=== PATIENT | female | born 1950 | race Caucasian/White ===

== ENCOUNTER 2021-07-18 14:48 | Emergency (ER) | payer OTHER, MEDICARE ==
[~2021-07-18] VITALS: Ht 157.5 cm; Wt 73.5 kg
[~2021-07-18 14:48] MED LIST: ACETAMINOPHEN325 M1 PO; DIPROLENE AF 0.15 GM; FLAGYL250 MG PO; IBUPROFEN200 MG PO; LANSOPRAZOLE30 MG PO; LEVO-T75 MCG PO; MIRAPEX0.25 MG PO; NORCO 5-325 TA1 EACH PO; OCUVITE TABLET1 EAC1 PO; PENTASA500 MG PO; PEPCID20 MG PO; PERCOCET 7.5-31 EACH PO; RANITIDINE HCL150 M1 PO; TUMS200 MG PO; VITAMIN D1000 UNIT PO; ZOFRAN ODT8 MG SL
[2021-07-18] MEDS ORDERED: DILAUDID2 MG PO (15:36)
[2021-07-18] MEDS ORDERED: ONDANSETRON ODT8 MG PO (15:36)
== END 2021-07-18 16:02 | disposition home or self-care (01) ==
LOC: ED 14:48
DX: S42.212A Unspecified displaced fracture of surgical neck of left humerus, initial encounter for closed fracture (principal); W18.30XA Fall on same level, unspecified, initial encounter; K21.9 Gastro-esophageal reflux disease without esophagitis; Z87.891 Personal history of nicotine dependence; Z79.899 Other long term (current) drug therapy
CPT/HCPCS: 73060; 96372; 99283-25; J1170

== ENCOUNTER 2025-03-19 07:47 | Day surgery (SDC) | payer MEDICARE, OTHER ==
[~2025-03-19] VITALS: Ht 154.9 cm; Wt 73.0 kg
[~2025-03-19 07:47] MED LIST changes: +CEFAZOLIN SODIUM 2 GM/20 ML SYR IV SCH; +DILAUDID2 MG PO; +HEParin SOD (PORCINE) 5,000 UNIT/ML SDV SUB-Q SCH; +IBLOOD GLUCOSE TEST STRIP 1 EA TEST VI PRN; +IRON18 M1 PO; +LACTATED RINGER'S 1,000 ML IV SCH; +LIDOCAINE HCL 1% 5 ML SDV INJ ONE; +MIRAPEX ER1.5 MG PO; -MIRAPEX0.25 MG PO; +ONDANSETRON ODT8 MG PO; +ZYRTEC10 M3 PO
[2025-03-19 08:02] VITALS: BP 124/70
[2025-03-19] MEDS ORDERED: dexmedeTOMIDine HCl 200 MCG/2 ML VIAL ONE (08:27)
[2025-03-19] MEDS ORDERED: propofoL 200 MG/20 ML VIAL ONE (08:27)
[2025-03-19] MEDS ORDERED: LIDOCAINE HCL 2% 5 ML SDV ONE (08:28)
[2025-03-19] MEDS ORDERED: ROCURONIUM BROMIDE 50 MG/5 ML SYR ONE ×2 (08:28→09:08)
[2025-03-19] MEDS ORDERED: DEXAMETHASONE SOD PHOS 4 MG/ML VIAL ONE (08:41)
[2025-03-19] MEDS ORDERED: ACETAMINOPHEN 1,000 MG/100 ML VIAL ONE (08:44)
[2025-03-19] MEDS ORDERED: ePHEDrine sulfate 50 MG/ML AMP ONE (08:47)
[2025-03-19] MEDS ORDERED: ondansetron HCL 4 MG/2 ML VIAL ONE (09:13)
--- NOTE | 2025-03-19 09:22 | NUR ---
03/19/25 0922 Vicki Gunderson 0916-PATIENT ARRIVED TO PACU ON RA RR EVEN. PATIENT REACTIVE TO VERBAL STIMULI DENIES PAIN OR NAUSEA. SR HR 70'S. IVF INFUSING. DRESSING INTACT. PATIENT DOZES BACK TO SLEEP.
[2025-03-19] MEDS ORDERED: IBUPROFEN 600 MG TAB PO PRN (09:30)
[2025-03-19] MEDS ORDERED: NALOXONE HCL 0.4 MG SYR IV PRN ×2 (09:30→10:15)
[2025-03-19] MEDS ORDERED: OXYCODONE/APAP 7.5/325 TAB PO PRN (09:30)
[2025-03-19] MEDS ORDERED: LACTATED RINGER'S 1,000 ML IV SCH (09:30)
[2025-03-19] MEDS ORDERED: ACETAMINOPHEN 500 MG TAB PO PRN (09:30)
[2025-03-19] MEDS ORDERED: IBUPROFEN600 MG PO (09:31)
[2025-03-19] MEDS ORDERED: OXYCODON-ACETA1 EAC2 PO (09:32)
[2025-03-19] MEDS ORDERED: ACETAMINOPHEN500 MG PO (09:32)
[2025-03-19 09:55] VITALS: BP 96/61
--- NOTE | 2025-03-19 10:04 | NUR ---
PATIENT BACK IN DAY SURGERY UNIT FROM PACU. DENIES PAIN. RUQ ABDOMINAL DRESSING CLEAN, DRY AND INTACT. VS CHECKED. IV SITE WNL. SCDs ON. TOLERATING SIPS OF WATER. GIVEN PUDDING TO EAT. AT BEDSIDE. CALL LIGHT WITHIN REACH.
[2025-03-19] MEDS ORDERED: droPERidol 5 MG/2 ML VIAL IV PRN (10:15)
[2025-03-19] MEDS ORDERED: HYDROmorphone HCL 1 MG/ML SYR IV PRN (10:15)
[2025-03-19] MEDS ORDERED: fentaNYL citrate 50 MCG/ML SDV IV PRN (10:15)
[2025-03-19] MEDS ORDERED: ondansetron HCL 4 MG/2 ML VIAL IV PRN (10:15)
[2025-03-19] MEDS ORDERED: LORazepam 2 MG/ML VIAL IV PRN (10:15)
--- NOTE | 2025-03-19 10:26 | NUR ---
CHECKED ON PATIENT. TOELRATED PUDDING. DRINKING COFFEE. NO NEEDS AT THIS TIME.
--- NOTE | 2025-03-19 11:05 | NUR ---
LE 1104: PT IS ASSISTED UP OOB WITH STAND BY ASSIST. SHE WALKS TO THE BATHROOM.
[2025-03-19] MEDS ORDERED: SEVOFLURANE 250 ML BTL INH ONE (11:15)
[2025-03-19 11:20] VITALS: BP 118/71
--- NOTE | 2025-03-19 11:41 | NUR ---
1105: PATIENT ASSISTED OOB AND BATHROOM BY OTHER RN. ABLE TO VOID WITHOUT DIFFICULTY. GAIT STEADY BACK TO ROOM. PATIENT GETTING DRESSED WITH IN ROOM. SMALL AMOUNT OF NEW RED DRAINAGE SEEN ON SURGICAL DRESSING. 1110: DISCHARGE INSTRUCTIONS GIVEN TO PATIENT AND . 1125: VS CHECKED. IV DC'D WNL. TIP INTACT. DRESSING APPLIED. RECHECKED SURGICAL DRESSING. NO CHANGE IN DRAINAGE SINCE LAST CHECK. 1128: PATIENT DISCHARGED TO HOME WITH VIA WHEELCHAIR.
--- NOTE | 2025-03-22 14:30 | OR ---
[facility] [address], [place] [address] Signed DATE OF OPERATION: 03/19/2025 SURGEON: Latrice Condon MD PREOPERATIVE DIAGNOSIS: Incarcerated right upper abdominal incisional hernia. POSTOPERATIVE DIAGNOSIS: Incarcerated right upper abdominal incisional hernia, defect. 4.4 cm herniated viscus properitoneal fat. PROCEDURE: Repair of incarcerated right upper quadrant incisional hernia 4.4 cm defect with implantation of Prolene mesh underlay technique with closure of fascia. ANESTHESIA: General endotracheal, Kenna Havner, [employer]ING [employer]ORDINATOR and local 10 mL of 0.25% Marcaine with epinephrine. INDICATION: This 74-year-old white woman is a patient of [facility] and found to have a hernia in the epigastric area in the medial aspect of the right subcostal incision. This hernia was formed at time of cholecystectomy decades ago. Her ultrasound showed herniation of fatty tissue as well as possible bowel. The abnormality is only partially reducible initially and now not reducible at all. She is admitted at this time to undergo repair of the defect, understanding the risk of bleeding, infection, recurrence and so on. FINDINGS: Herniated properitoneal fat was a dominant herniated viscus. It was replaced to the intraabdominal properitoneal space. The fascial defect was actually larger than expected measuring 4.4 cm. Repair consisted of implantation of Prolene mesh in an underlay technique with closure of the fascia over it. There were no other findings of note. DESCRIPTION OF PROCEDURE: The patient was brought to the operating room, given a general endotracheal anesthetic. Preoperative antibiotic Ancef was given. Sequential compression device stockings were used. The abdomen was prepared with chlorhexidine solution and draped sterilely. The palpable abnormality despite relaxation of the abdominal wall was not reducible and located in the epigastric area at the medial end of a right subcostal incision. An Electronically Signed By: LATRICE CONDON MD 03/22/25 143 PATIENT NAME: MARGUERITE CRUZ OPERATIVE REPORT DATE OF : 52 REPORT #: [id number] PHYSICIAN: LATRICE CONDON MD PCP: SUSAN WALLS PA-C REPORT IS CONFIDENTIAL AND NOT TO BE RELEASED WITHOUT AUTHORIZATION [facility] [address], [place] [address] Signed incision was made directly over the herniated viscus extending onto the [place] right subcostal incision to a degree. Dissection was carried through the subcutaneous tissue with electrocautery and the properitoneal fat was noted immediately beneath the incision site. This was from the surrounding soft tissue. The fascial defect was freed and measured approximately 4.4 cm in length rather than smaller size of 2 cm as previously noted. Ultimately, the herniated viscus which dominantly was fat was replaced to the properitoneal and intraabdominal space. The fascia was developed circumferentially in this area and a segment of Prolene ProGrip mesh was cut to an elliptical configuration and secured in the properitoneal space with interrupted 0 Prolene sutures. The fascia was then reapproximated with interrupted 0 Prolene suture in a horizontal mattress configuration. 10 mL of 0.25% Marcaine was injected locally. Saranya layer was reapproximated with interrupted 3-0 Vicryl and skin closed with running subcuticular 3-0 Vicryl. Steri-Strips were applied as was an Acticoat dressing. She was ultimately extubated and transferred to the recovery room in good condition having suffered no complication. Sponge, needle, and instrument counts reported as correct x3. MD TAWANDA Elaine/DAHIANA /[id number] cc: Susan Walls PA-C Copies: SUSAN WALLS PA-C ~ Electronically Signed By: LATRICE CONDON MD 03/22/25 1430 PATIENT NAME: MARGUERITE CRUZ OPERATIVE REPORT DATE OF : 52 REPORT #: [id number] PHYSICIAN: LATRICE CONDON MD PCP: SUSAN WALLS PA-C REPORT IS CONFIDENTIAL AND NOT TO BE RELEASED WITHOUT AUTHORIZATION
== END 2025-03-19 11:28 | disposition home or self-care (01) ==
LOC: DS 07:47
PROVIDERS: ATTEND Surgery
DX: K43.0 Incisional hernia with obstruction, without gangrene (principal); K50.90 Crohn's disease, unspecified, without complications; K64.9 Unspecified hemorrhoids; K21.9 Gastro-esophageal reflux disease without esophagitis; E03.9 Hypothyroidism, unspecified; Z79.890 Hormone replacement therapy; Z79.899 Other long term (current) drug therapy
CPT/HCPCS: 00750; C1781; J0131; J0690; J1100; J1644; J2003; J2405; J2704; J3490; J7121

== ENCOUNTER 2025-09-07 14:43 | Emergency (ER) | payer MEDICARE, OTHER ==
[~2025-09-07] VITALS: Ht 154.9 cm; Wt 71.4 kg
[~2025-09-07 14:43] MED LIST changes: +ACETAMINOPHEN500 MG PO; -CEFAZOLIN SODIUM 2 GM/20 ML SYR IV SCH; -HEParin SOD (PORCINE) 5,000 UNIT/ML SDV SUB-Q SCH; -IBLOOD GLUCOSE TEST STRIP 1 EA TEST VI PRN; +IBUPROFEN600 MG PO; -LACTATED RINGER'S 1,000 ML IV SCH; -LIDOCAINE HCL 1% 5 ML SDV INJ ONE; +OXYCODON-ACETA1 EAC2 PO
[2025-09-07] MEDS ORDERED: SODIUM CHLORIDE 0.9% 500 ML IV ONE (16:30)
[2025-09-07] MEDS ORDERED: FAMOTIDINE20 MG PO (16:35)
[2025-09-07] MEDS ORDERED: COLESTIPOL HCL1 GM PO (16:35)
[2025-09-07 17:03] LABS: BASOPHILS 0.1 % (0.1-1.2); EOSINOPHILS 1.1 % (0.7-5.8); LYMPHOCYTES 7.3 % (19.3-51.7); MCH 29.0 PG (25.6-32.2); MCHC 32.9 g/dL (32.2-35.5); MCV 88.3 fL (79.4-94.8); MONOCYTES 4.1 % (4.7-12.5); NEUTROPHILS 87.2 % (34.0-71.1); RBC 5.13 M/uL (3.93-5.22)
[2025-09-07 17:29] LABS: ALT (SGPT) 22.0 U/L (14-59); AST (SGOT) 20.0 U/L (15-37); GLOMERULAR FILTRATION RATE,EST 64.0 mL/min (>60); PROTEIN, TOTAL 8.3 g/dL (6.4-8.2); UREA NITROGEN 17.0 mg/dL (7-18)
[2025-09-07] MEDS ORDERED: DIPHENOXYLATE/ATROPINE 1 EA TAB PO ONE (17:30)
[2025-09-07] MEDS ORDERED: SODIUM CHLORIDE 0.9% 1,000 ML IV ONE (17:30)
[2025-09-07] MEDS ORDERED: ONDANSETRON ODT8 MG PO (18:40)
[2025-09-07] MEDS ORDERED: LOMOTIL TABLET1 EACH PO (18:40)
[2025-09-07 18:45] VITALS: BP 122/75
== END 2025-09-07 18:50 | disposition home or self-care (01) ==
LOC: ED 14:43
PROVIDERS: Emergency Medicine
DX: K52.9 Noninfective gastroenteritis and colitis, unspecified (principal); K21.9 Gastro-esophageal reflux disease without esophagitis; Z87.891 Personal history of nicotine dependence
CPT/HCPCS: 36415; 80053; 83735; 85025; 96374; 99284-25; J2405; J7030; J7040